=== PATIENT | female | born 1995 | race Caucasian/White ===

== ENCOUNTER 2019-03-13 06:41 | Inpatient (IN) | payer MEDICAID ==
[~2019-03-13] VITALS: Ht 167.6 cm; Wt 92.5 kg
[2019-03-13] MEDS ORDERED: MAGNESIUM 20 G PREMIX (L & D) 500 ML IV ONE (07:21)
[2019-03-13] MEDS ORDERED: DEXT 5%/LR + PITOCIN 20UNITS/L 1,000 ML IV ONE (07:37)
[2019-03-13] MEDS ORDERED: DEXT 5%/LR + PITOCIN 20UNITS/L 1,000 ML IV SCH (07:38)
[2019-03-13] MEDS ORDERED: ACETAMINOPHEN WITH CODEINE 300/30MG TABLET PO PRN ×2 (07:45)
[2019-03-13] MEDS ORDERED: GLYCERIN/WITCH HAZEL LEAF MEDICATED PAD TOP PRN (07:45)
[2019-03-13] MEDS ORDERED: BISACODYL 10MG SUPP PR PRN (07:45)
[2019-03-13] MEDS ORDERED: BENZOCAINE/LANOLIN/ALOE VERA SPRAY TOP PRN (07:45)
[2019-03-13] MEDS ORDERED: HEMORRHOIDAL SUPP PR PRN (07:45)
[2019-03-13] MEDS ORDERED: LACTATED RINGERS 1,000 ML IV SCH (09:16)
[2019-03-13 09:46] LABS: BASOPHILS % 0.1 % (0.0-2.0); HEMATOCRIT. 38.6 % (36.0-48.0); HEMOGLOBIN. 13.4 g/dL (12.0-16.0); MEAN CORPUSCULAR HEMOGLOBIN 30.7 pg (28.0-32.0); MEAN CORPUSCULAR VOLUME 88.4 fL (81.0-99.0); MEAN PLATELET VOLUME 9.4 fl (7.4-10.4); MONOCYTES % 5.9 % (2.0-8.0); PLATELET 210 x1000/uL (130-400); RED BLOOD CELL COUNT 4.36 mill/uL (4.2-5.4); RED CELL DISTRIBUTION WIDTH 13.4 % (11.6-14.6)
[2019-03-13 09:56] LABS: INR 0.9; PROTHROMBIN TIME 9.4 sec (9.6-11.0)
[2019-03-13 10:00] LABS: CHLORIDE 105 mEq/L (98-107)
[2019-03-13 10:30] VITALS: BP 104/55
[2019-03-13 11:00] VITALS: BP 108/65
[2019-03-13] MEDS: MAGNESIUM/ALUMINUM HYDROXIDE/SIMETHICONE 30ML UDC PO SCH ×3 (13:17→21:00)
[2019-03-13] MEDS: PRENATAL VIT/FE FUMARATE/FA TABLET PO SCH (13:18)
[2019-03-13] MEDS: SIMETHICONE 80MG TABLET CHEW PO SCH ×3 (13:19→21:13)
[2019-03-13 17:30] VITALS: BP 100/50
[2019-03-13] MEDS: IBUPROFEN 400MG TABLET PO PRN (18:00)
[2019-03-13 19:27] VITALS: BP 100/70
[2019-03-13 19:40] LABS: HEPATITIS B SURFACE ANTIGEN NEGATIVE
[2019-03-13] MEDS: DOCUSATE SODIUM 100MG CAPSULE PO SCH (21:12)
[2019-03-14 04:48] VITALS: BP 120/71
[2019-03-14 06:46] LABS: BASOPHILS % 0.2 % (0.0-2.0); EOSINOPHILS % 1.3 % (0.0-5.0); HEMATOCRIT. 37.6 % (36.0-48.0); HEMOGLOBIN. 13.1 g/dL (12.0-16.0); LYMPHOCYTES % 27.1 % (20.0-50.0); MEAN CORPUSCULAR HEMOGLOBIN 30.7 pg (28.0-32.0); MEAN CORPUSCULAR VOLUME 88.3 fL (81.0-99.0); MEAN PLATELET VOLUME 8.9 fl (7.4-10.4); NEUTROPHILS % 63.4 % (40.0-76.0); PLATELET 192 x1000/uL (130-400); RED BLOOD CELL COUNT 4.26 mill/uL (4.2-5.4); RED CELL DISTRIBUTION WIDTH 13.3 % (11.6-14.6)
[2019-03-14 07:59] VITALS: BP 92/52
[2019-03-14] MEDS: FERROUS SULFATE 325MG TABLET PO SCH ×3 (08:24→18:14)
[2019-03-14] MEDS: PRENATAL VIT/FE FUMARATE/FA TABLET PO SCH (08:24)
[2019-03-14] MEDS: IBUPROFEN 400MG TABLET PO PRN (08:24)
[2019-03-14] MEDS: MAGNESIUM/ALUMINUM HYDROXIDE/SIMETHICONE 30ML UDC PO SCH ×5 (08:55→23:54)
[2019-03-14] MEDS: SIMETHICONE 80MG TABLET CHEW PO SCH ×5 (08:55→23:54)
[2019-03-14 16:15] VITALS: BP 106/59
[2019-03-14 20:00] VITALS: BP 114/66
[2019-03-14] MEDS: DOCUSATE SODIUM 100MG CAPSULE PO SCH ×2 (21:00→23:54)
[2019-03-15] VITALS: BP 121/56
[2019-03-15 08:00] VITALS: BP 110/67
[2019-03-15] MEDS: PRENATAL VIT/FE FUMARATE/FA TABLET PO SCH (08:32)
[2019-03-15] MEDS: SIMETHICONE 80MG TABLET CHEW PO SCH (08:32)
[2019-03-15] MEDS: FERROUS SULFATE 325MG TABLET PO SCH (08:32)
== END 2019-03-15 11:30 | disposition home or self-care (01) | DRG 560 ==
LOC: OBSVTOIN 06:41 → 8 EST LDRP 06:41 → 8 EST A/PP 10:15
PROVIDERS: ADMIT Obstetrics & Gynecology; ATTEND Obstetrics & Gynecology
PROC: 10E0XZZ Delivery of Products of Conception, External Approach (ICD-10-PCS; principal; 2019-03-13)
DX: O60.12X0 Preterm labor second trimester with preterm delivery second trimester, not applicable or unspecified (principal); Z37.0 Single live birth; Z3A.25 25 weeks gestation of pregnancy
CPT/HCPCS: 36415; 76815; 86592; 86703; 86762; 86850; 86900; 87340; 88307; J2590; J3475; J7120

== ENCOUNTER 2024-07-23 01:37 | Emergency (ER) | payer MEDICAID, OTHER ==
[~2024-07-23] VITALS: Ht 162.6 cm; Wt 100.0 kg
[2024-07-23 01:40] VITALS: BP 144/90; PULSE 79; RESP 18; TEMP 36.6; O2SAT 99
[2024-07-23] MEDS: LORAZEPAM 0.5MG TABLET PO ONE (04:26)
[2024-07-23 05:58] LABS: BASOPHILS % 0.8 % (0.0-2.0); HEMATOCRIT. 40.5 % (36.0-48.0); HEMOGLOBIN. 14.2 g/dL (12.0-16.0); LYMPHOCYTES % 35.5 % (20.0-50.0); MEAN CORPUSCULAR HEMOGLOBIN 31.8 pg (28.0-32.0); MEAN PLATELET VOLUME 8.4 fl (7.4-10.4); MONOCYTES % 3.8 % (2.0-8.0); NEUTROPHILS % 57.9 % (40.0-76.0); PLATELET 220 x1000/uL (130-400); RED BLOOD CELL COUNT 4.45 mill/uL (4.2-5.4); RED CELL DISTRIBUTION WIDTH 14.5 % (11.6-14.6); WHITE BLOOD COUNT 5.9 x1000/uL (4.5-11.0)
[2024-07-23 06:08] LABS: POTASSIUM 3.7 mEq/L (3.5-5.1)
[2024-07-23 06:10] LABS: CALCIUM 9.8 mg/dL (8.7-10.4)
[2024-07-23] MEDS: CYCLOBENZAPRINE 10MG TABLET PO SCH (06:12)
[2024-07-23 06:14] LABS: CREATININE 1.3 mg/dL (0.6-1.0)
== END 2024-07-23 08:12 | disposition home or self-care (01) ==
LOC: ER 01:37
DX: F41.9 Anxiety disorder, unspecified (principal)
CPT/HCPCS: 36415; 80048; 85025; 99283